=== PATIENT | male | born 1965 | race Caucasian/White ===

== ENCOUNTER 2024-10-31 20:24 | Inpatient (IN) | payer BC ==
[2024-10-31 20:59] LABS: #Basophils Less than 0.03 10x3/uL (0.0-0.2); #Eosinophils 0.04 10x3/uL (0.0-0.7); #Monocytes 1.00 10x3/uL (0.11-0.59); #Neutrophils 8.56 10x3/uL (1.40-6.50); %Basophils 0.2 % (0.0-1.0); %Eosinophils 0.3 % (0.0-10.0); %Lymphocytes 16.2 % (21.0-51.0); %Monocytes 8.7 % (0.0-10.0); %Neutrophils 74.3 % (42.0-75.0); Hematocrit 40.4 % (42.0-52.0); Hemoglobin 13.9 g/dL (14.0-18.0); Mean Corpuscular Hemoglobin 32.2 pg (27.0-31.0); Mean Corpuscular Volume 93.5 fL (78.0-98.0); Platelet Count 181 10x3/uL (130-400); Red Blood Cell (RBC) Count 4.32 mill/uL (4.70-6.10); White Blood Cell (WBC) Count 11.53 10x3/uL (4.8-10.8)
[2024-10-31] MEDS ORDERED: Cefepime 2 GM VIAL ONE (21:09)
[2024-10-31 21:16] LABS: ALT (SGPT) 50 U/L (Less than 45); AST (SGOT) 45 U/L (11-34); Albumin 4.7 g/dL (3.1-4.5); Alkaline Phosphatase 64 U/L (40-110); Anion Gap 14 mmol/L (10-20); BUN (Urea Nitrogen) 21 mg/dL (8.4-25.7); Bilirubin, Total 0.6 mg/dL (0.3-1.2); Calc. Creatinine Clearance 0 mL/min (70-130); Calcium 9.6 mg/dL (7.8-10.44); Carbon Dioxide 25 mmol/L (22-29); Chloride 99 mmol/L (98-107); Globulin 2.7 g/dL (2.4-3.5); Glucose 116 mg/dL (70-105); Potassium 4.4 mmol/L (3.5-5.1); Sodium 134 mmol/L (136-145)
[2024-10-31 21:42] LABS: Bacteria/HPF None Seen HPF (None Seen); CAUTI Indications for Culture Dysuria,urgency,freq; Glucose, Urine (Dipstick) Normal (Negative); Leukocyte Negative Leu/uL (Negative); Protein, Urine (Dipstick) Negative (Neg-Trace); RBC/HPF 0-3 HPF (0-3); Specific Gravity, Urine 1.009 (1.002-1.036); WBC/HPF 0-3 HPF (0-3)
[2024-10-31] MEDS ORDERED: Acetaminophen 500 MG TAB ONE (21:47)
[2024-10-31 21:51] LABS: Urine Culture Reflex No No
[2024-10-31] MEDS ORDERED: VANCOMYCIN 2 GRAM/400 ML BAG ONE (21:55)
[2024-10-31] MEDS ORDERED: VANCOMYCIN 2 GRAM/400 ML Premix BAG IVPB SCH (22:00)
[2024-10-31] MEDS ORDERED: Lidocaine 1% (PF) 30 ML VIAL ONE (23:12)
[2024-10-31] MEDS ORDERED: Ondansetron PF 4 MG/2 ML Vial IVP PRN (23:30)
[2024-10-31] MEDS ORDERED: Acetaminophen 325 MG TAB PO PRN (23:30)
[2024-11-01 00:38] VITALS: BMI 28.6
[2024-11-01 05:55] LABS: #Basophils 0.03 10x3/uL (0.0-0.2); #Eosinophils 0.06 10x3/uL (0.0-0.7); #Monocytes 1.02 10x3/uL (0.11-0.59); #Neutrophils 8.88 10x3/uL (1.40-6.50); %Basophils 0.3 % (0.0-1.0); %Eosinophils 0.5 % (0.0-10.0); %Lymphocytes 12.3 % (21.0-51.0); %Monocytes 8.9 % (0.0-10.0); %Neutrophils 77.7 % (42.0-75.0); Hematocrit 41.2 % (42.0-52.0); Hemoglobin 13.7 g/dL (14.0-18.0); Mean Corpuscular Hemoglobin 31.8 pg (27.0-31.0); Mean Corpuscular Volume 95.6 fL (78.0-98.0); Platelet Count 155 10x3/uL (130-400); Red Blood Cell (RBC) Count 4.31 mill/uL (4.70-6.10); White Blood Cell (WBC) Count 11.43 10x3/uL (4.8-10.8)
[2024-11-01 06:10] LABS: Vancomycin, Random 8.9 ug/mL (See Comment)
[2024-11-01 06:12] LABS: Anion Gap 12 mmol/L (10-20); BUN (Urea Nitrogen) 14 mg/dL (8.4-25.7); Calc. Creatinine Clearance 135 mL/min (70-130); Calcium 8.9 mg/dL (7.8-10.44); Carbon Dioxide 24 mmol/L (22-29); Chloride 102 mmol/L (98-107); Glucose 122 mg/dL (70-105); Potassium 4.1 mmol/L (3.5-5.1)
[2024-11-01 06:23] LABS: Sodium 134 mmol/L (136-145)
[2024-11-01] MEDS: Ketorolac Tromethamine 30 MG (1 mL) VIAL IVP PRN (08:34)
[2024-11-01] MEDS: VANCOMYCIN 1.75 GM/350 ML Premix BAG IVPB SCH (08:34)
[2024-11-01] MEDS: Enoxaparin 40 MG (0.4 mL) SYRINGE SC SCH (08:34)
[2024-11-01] MEDS ORDERED: Vancomycin 1.25 GM / NS 250 ML VIAL-2-BAG IVPB SCH (09:00)
[2024-11-02 05:18] LABS: Vancomycin, Random 15.2 ug/mL (See Comment)
[2024-11-02 06:09] VITALS: TEMP 98.1
[2024-11-02 07:10] LABS: Anion Gap 13 mmol/L (10-20); BUN (Urea Nitrogen) 12 mg/dL (8.4-25.7); Calc. Creatinine Clearance 109 mL/min (70-130); Calcium 9.3 mg/dL (7.8-10.44); Carbon Dioxide 26 mmol/L (22-29); Chloride 99 mmol/L (98-107); Glucose 123 mg/dL (70-105); Potassium 4.0 mmol/L (3.5-5.1); Sodium 134 mmol/L (136-145)
[2024-11-02 12:20] VITALS: BP 149/78
== END 2024-11-02 13:30 | disposition home or self-care (01) | DRG 872 ==
LOC: ERS 20:24 → T4-B 23:33
PROVIDERS: ADMIT Internal Medicine; ATTEND Internal Medicine
PROC: 3E03329 Introduction of Other Anti-infective into Peripheral Vein, Percutaneous Approach (ICD-10-PCS; principal; 2024-11-01)
PROC: 0R9M3ZZ Drainage of Left Elbow Joint, Percutaneous Approach (ICD-10-PCS; 2024-11-02)
DX: A41.9 Sepsis, unspecified organism (principal); L03.114 Cellulitis of left upper limb; M71.122 Other infective bursitis, left elbow; I10 Essential (primary) hypertension; Z79.899 Other long term (current) drug therapy; Z89.511 Acquired absence of right leg below knee; Z98.890 Other specified postprocedural states
CPT/HCPCS: 36415; 80048; 80053; 80202; 81001; 83605; 85025; 86141; 87040; 87070; 87077; 87081; 87086; 87186; 87205; 93005; 94760; 96365; 96366; 96375; J0692; J1650; J1885; J3375

== ENCOUNTER 2024-12-09 12:37 | Outpatient (CLI) | payer BC | END 2024-12-09 12:38 | disposition home or self-care (01) | LOC: BICRAD 12:37 | PROVIDERS: ATTEND Family Medicine | DX: M25.511 Pain in right shoulder (principal) ==